=== PATIENT | female | born 2000 | race Caucasian/White ===

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

== ENCOUNTER 2019-11-30 10:07 | Emergency (ER) | payer MEDICAID, OTHER ==
[~2019-11-30] VITALS: Ht 172.7 cm; Wt 89.1 kg
[2019-11-30 10:33] VITALS: BP 123/97
== END 2019-11-30 10:50 | disposition left against medical advice (07) ==
LOC: ER 10:07
DX: J06.9 Acute upper respiratory infection, unspecified (principal)
CPT/HCPCS: 99281

== ENCOUNTER 2019-11-30 11:54 | Emergency (ER) | payer MEDICAID, OTHER ==
[~2019-11-30] VITALS: Ht 170.2 cm; Wt 89.1 kg
[2019-11-30 12:05] VITALS: BP 123/92
== END 2019-11-30 12:17 | disposition home or self-care (01) ==
LOC: ER 11:54
DX: J06.9 Acute upper respiratory infection, unspecified (principal); Z20.828 Contact with and (suspected) exposure to other viral communicable diseases
CPT/HCPCS: 36415; 87635; 99281; 99283

== ENCOUNTER 2021-04-26 12:34 | Emergency (ER) | payer MEDICAID | END 2021-04-26 13:44 | disposition left against medical advice (07) | LOC: ER 12:35 | DX: M54.59 Other low back pain (principal); Z53.21 Procedure and treatment not carried out due to patient leaving prior to being seen by health care provider ==

== ENCOUNTER 2021-05-19 07:57 | Emergency (ER) | payer MEDICAID ==
[~2021-05-19] VITALS: Ht 172.7 cm; Wt 79.4 kg
[2021-05-19 08:12] VITALS: BP 123/84
[2021-05-19] MEDS ORDERED: PRED10TA23 PO (08:46)
[2021-05-19] MEDS ORDERED: HYDR28CR29 TOP (08:49)
== END 2021-05-19 09:03 | disposition home or self-care (01) ==
LOC: ER 07:58
DX: L23.7 Allergic contact dermatitis due to plants, except food (principal); Z79.899 Other long term (current) drug therapy
CPT/HCPCS: 99283

== ENCOUNTER 2021-11-02 10:18 | Emergency (ER) | payer MEDICAID ==
[~2021-11-02] VITALS: Ht 170.2 cm; Wt 73.6 kg
[~2021-11-02 10:18] MED LIST changes: +HYDR28CR29 TOP
[2021-11-02 10:20] VITALS: BP 138/90
[2021-11-02] MEDS ORDERED: iohexol 350MG/ML 100ml bottle IV ONE (11:04)
[2021-11-02 12:03] LABS: URINE HCG NEGATIVE (NEG)
[2021-11-02 12:11] LABS: CLARITY,URINE CLEAR (Clear); GLUCOSE, URINE NEGATIVE (Neg); KETONES,URINE NEGATIVE (Neg); LEUKOCYTE ESTERASE ,URINE NEGATIVE (Neg); NITRITES, URINE NEGATIVE (Neg); OCCULT BLOOD,URINE NEGATIVE (Neg); PROTEIN,URINE NEGATIVE (Neg); UROBILINOGEN,URINE 0.2 E.U/dL (0.2-1.0)
[2021-11-02 12:16] LABS: COLOR,URINE STRAW (Yellow); UA COLLECTION TYPE CLN CATCH MIDSTREAM
== END 2021-11-02 13:19 | disposition home or self-care (01) ==
LOC: ER 10:19 → EEVIPCON 10:19 → ER 13:19
DX: S00.33XA Contusion of nose, initial encounter (principal); S40.012A Contusion of left shoulder, initial encounter; T71.9XXA Asphyxiation due to unspecified cause, initial encounter; Y08.89XA Assault by other specified means, initial encounter; Y92.89 Other specified places as the place of occurrence of the external cause; Y93.89 Activity, other specified; Y99.8 Other external cause status; Z79.899 Other long term (current) drug therapy
CPT/HCPCS: 70486; 70496; 70498; 81003; 81025; 99285; J3490; Q9967

== ENCOUNTER 2023-08-14 14:00 | Emergency (ER) | payer MEDICAID ==
[~2023-08-14] VITALS: Ht 170.2 cm; Wt 54.5 kg
[~2023-08-14 14:00] MED LIST changes: -HYDR28CR29 TOP; +HYDR28CR96 TOP
[2023-08-14] MEDS: ziprasidone IM 20mg inj **IM only IM ONE (14:32)
[2023-08-14 14:56] LABS: BASOPHILS % (AUTO) 0.7 % (0-1); EOSINOPHILS # (AUTO) 0.1 X10'3 (0-0.9); EOSINOPHILS % (AUTO) 1.8 % (0-6); HEMATOCRIT 42.4 % (35.0-45.0); HEMOGLOBIN 14.1 g/dl (12.0-16.0); LYMPHOCYTES # (AUTO) 2.6 X10'3 (1.1-4.8); MEAN CORPUSCULAR HEMOGLOBIN 30.2 PG (27.0-31.0); MEAN CORPUSCULAR HGB CONC 33.2 g/dL (33.0-36.5); MEAN CORPUSCULAR VOLUME 90.7 FL (78-98); MEAN PLATELET VOLUME 8.6 FL (7.4-10.4); MONOCYTES # (AUTO) 0.6 X10'3 (0-0.9); MONOCYTES % (AUTO) 8.4 % (2-12); NEUTROPHILS # (AUTO) 3.4 X10'3 (1.8-7.7); NEUTROPHILS % (AUTO) 50.1 % (42-75); PLATELET COUNT 367 X10'3 (140-440); RED BLOOD COUNT 4.67 X10'6 (4.20-5.60); RED CELL DISTRIBUTION WIDTH 18.7 % (11.5-14.5); WHITE BLOOD COUNT 6.7 X10'3 (4.5-11.0)
[2023-08-14 15:02] LABS: BILIRUBIN,URINE SMALL (Neg); CLARITY,URINE CLOUDY (Clear); COLOR,URINE YELLOW (Yellow); GLUCOSE, URINE NEGATIVE (Neg); KETONES,URINE NEGATIVE (Neg); LEUKOCYTE ESTERASE ,URINE TRACE (Neg); NITRITES, URINE NEGATIVE (Neg); OCCULT BLOOD,URINE NEGATIVE (Neg); PROTEIN,URINE TRACE mg/dl (Neg); UROBILINOGEN,URINE 0.2 E.U/dL (0.2-1.0)
[2023-08-14 15:02] LABS: ALANINE AMINOTRANSFERASE 30 U/L (12-78); ALKALINE PHOSPHATASE 69 IU/L (46-116); ANION GAP 11 (8-16); ASPARTATE AMINO TRANSFERASE 23 U/L (10-37); BILIRUBIN,TOTAL 0.4 MG/DL (0.1-1.0); BLOOD UREA NITROGEN 14 MG/DL (7-18); BUN/CREATININE RATIO 15.4 (10.0-20.0); CALCIUM 9.2 MG/DL (8.5-10.1); CHLORIDE 108 MMOL/L (99-107); CREATININE 0.91 MG/DL (0.40-0.90); GLUCOSE 117 MG/DL (70-104); POTASSIUM 4.1 MMOL/L (3.5-5.1); SODIUM 144 MMOL/L (135-145); TOTAL CARBON DIOXIDE 25.4 MMOL/L (24-32); TOTAL PROTEIN 8.1 G/DL (6.4-8.2); eCRCL 82 ML/MIN; eGFR 76 ML/MIN
[2023-08-14 15:07] LABS: SQUAMOUS EPITHELIAL CELL,UR MANY /LPF (FEW); UA COLLECTION TYPE CLN CATCH MIDSTREAM
[2023-08-14 15:08] LABS: MUCUS STRANDS MODERATE /LPF (Neg)
[2023-08-14 15:09] LABS: BACTERIA,URINE 2+ /HPF (Neg); CAL OXALATE CRYSTALS 4+ /HPF (NEGATIVE); TRANSITIONAL EPI CELLS,URINE FEW /HPF; URINE AMPHETAMINE SCREEN NEGATIVE (Neg); URINE BARBITUATE SCREEN NEGATIVE (Neg); URINE BENZODIAZEPINES SCREEN NEGATIVE (Neg); URINE CANNABINOID SCREEN NEGATIVE (Neg); URINE COCAINE SCREEN POSITIVE (Neg); URINE METHADONE SCREEN NEGATIVE (Neg); URINE OPIATE SCREEN NEGATIVE (Neg); URINE PHENCYCLIDINE SCREEN NEGATIVE (Neg)
[2023-08-14 15:10] LABS: AMORPHOUS URATES 1+; RBC,URINE 0-2 /HPF (0-2)
[2023-08-14] MEDS ORDERED: NO HOME MEDS (17:33)
[2023-08-15 05:41] VITALS: BP 107/71; PULSE 66; RESP 14; TEMP 98.1; O2SAT 96
[2023-08-15 15:03] LABS: ETHANOL < 10 MG/DL (<10); THYROID STIMULATING HORMONE 0.91 ulU/ml (0.34-4.50)
[2023-08-15 15:27] LABS: ETHANOL < 10 MG/DL (<10); THYROID STIMULATING HORMONE 0.27 ulU/ml (0.34-4.50)
[2023-08-15 16:32] LABS: URINE HCG NEGATIVE (NEG)
== END 2023-08-15 17:14 ==
LOC: ER 14:01
DX: F29 Unspecified psychosis not due to a substance or known physiological condition (principal); Z20.822 Contact with and (suspected) exposure to COVID-19; R45.1 Restlessness and agitation; Z79.899 Other long term (current) drug therapy
CPT/HCPCS: 36415; 80053; 80305; 80320; 81001; 81025; 84443; 85025; 87811; 96372; 99285; J3486

== ENCOUNTER 2023-09-04 16:40 | Emergency (ER) | payer MEDICAID ==
[~2023-09-04] VITALS: Ht 175.3 cm; Wt 63.5 kg
[~2023-09-04 16:40] MED LIST changes: +NO HOME MEDS
[2023-09-04 17:15] LABS: URINE HCG NEGATIVE (NEG)
[2023-09-04] MEDS: diphenhydrAMINE 50 mg/ml inj IM ONE (17:15)
[2023-09-04] MEDS: LORazepam 1 MG tablet PO ONE (17:15)
[2023-09-04 17:25] LABS: URINE AMPHETAMINE SCREEN NEGATIVE (Neg); URINE BARBITUATE SCREEN NEGATIVE (Neg); URINE BENZODIAZEPINES SCREEN NEGATIVE (Neg); URINE CANNABINOID SCREEN NEGATIVE (Neg); URINE COCAINE SCREEN NEGATIVE (Neg); URINE METHADONE SCREEN NEGATIVE (Neg); URINE OPIATE SCREEN NEGATIVE (Neg); URINE PHENCYCLIDINE SCREEN NEGATIVE (Neg)
[2023-09-04 18:15] LABS: BASOPHILS % (AUTO) 0.3 % (0-1); EOSINOPHILS % (AUTO) 0.6 % (0-6); HEMATOCRIT 38.9 % (35.0-45.0); HEMOGLOBIN 12.8 g/dl (12.0-16.0); LYMPHOCYTES # (AUTO) 2.3 X10'3 (1.1-4.8); LYMPHOCYTES % (AUTO) 31.5 % (21-51); MEAN CORPUSCULAR HEMOGLOBIN 30.4 PG (27.0-31.0); MEAN CORPUSCULAR VOLUME 92.1 FL (78-98); MEAN PLATELET VOLUME 8.4 FL (7.4-10.4); MONOCYTES # (AUTO) 0.4 X10'3 (0-0.9); MONOCYTES % (AUTO) 5.3 % (2-12); NEUTROPHILS # (AUTO) 4.6 X10'3 (1.8-7.7); NEUTROPHILS % (AUTO) 62.3 % (42-75); PLATELET COUNT 334 X10'3 (140-440); RED BLOOD COUNT 4.22 X10'6 (4.20-5.60); RED CELL DISTRIBUTION WIDTH 15.9 % (11.5-14.5); WHITE BLOOD COUNT 7.5 X10'3 (4.5-11.0)
[2023-09-04 18:21] LABS: ALBUMIN 3.6 G/DL (3.4-5.0); ANION GAP 7 (8-16); BLOOD UREA NITROGEN 12 MG/DL (7-18); CALCIUM 9.2 MG/DL (8.5-10.1); CHLORIDE 105 MMOL/L (99-107); ETHANOL < 10 MG/DL (<10); GLUCOSE 83 MG/DL (70-104); POTASSIUM 3.9 MMOL/L (3.5-5.1); SODIUM 140 MMOL/L (135-145); TOTAL CARBON DIOXIDE 27.7 MMOL/L (24-32); eCRCL 109 ML/MIN; eGFR 88 ML/MIN
[2023-09-05] MEDS: risperiDONE 0.5mg tablet PO STA (00:46)
[2023-09-05] MEDS: LORazepam 1 MG tablet PO ONE (08:11)
[2023-09-05] MEDS ORDERED: ARIP15TA68 PO (08:53)
[2023-09-05] MEDS ORDERED: HYDR50TA65 PO (08:53)
[2023-09-05] MEDS ORDERED: METH-797 PO (08:53)
[2023-09-05] MEDS ORDERED: QUET50TA24 PO (08:53)
[2023-09-05] MEDS: hydrOXYzine 25 MG tablet PO ONE (09:32)
[2023-09-05] MEDS: aripiprazole 5mg tablet PO SCH (10:18)
[2023-09-05] MEDS: buprenorphine/naloxone 8MG-2MG SUBlingual film SL SCH (13:15)
[2023-09-05 16:17] VITALS: TEMP 98.5
[2023-09-05] MEDS: ondansetron 4mg rapidly disintigrating tab PO ONE ×2 (16:19→17:16)
[2023-09-05 17:13] VITALS: BP 105/71; PULSE 73; O2SAT 93
[2023-09-05] MEDS: haloperidol lactate 5mg/ml inj IM ONE (17:48)
[2023-09-05 19:15] LABS: ALANINE AMINOTRANSFERASE 29 U/L (12-78); ALBUMIN 3.8 G/DL (3.4-5.0); ALKALINE PHOSPHATASE 59 IU/L (46-116); ANION GAP 4 (8-16); ASPARTATE AMINO TRANSFERASE 15 U/L (10-37); BILIRUBIN,TOTAL 0.2 MG/DL (0.1-1.0); BLOOD UREA NITROGEN 13 MG/DL (7-18); CALCIUM 9.3 MG/DL (8.5-10.1); CHLORIDE 103 MMOL/L (99-107); CREATININE 0.65 MG/DL (0.40-0.90); GLUCOSE 103 MG/DL (70-104); POTASSIUM 4.6 MMOL/L (3.5-5.1); SODIUM 139 MMOL/L (135-145); TOTAL CARBON DIOXIDE 31.9 MMOL/L (24-32); TOTAL PROTEIN 7.7 G/DL (6.4-8.2); eCRCL 134 ML/MIN; eGFR > 90 ML/MIN
[2023-09-05] MEDS: diphenhydrAMINE 50 mg/ml inj IM ONE (19:15)
[2023-09-05 19:24] LABS: THYROID STIMULATING HORMONE 0.69 ulU/ml (0.34-4.50)
[2023-09-05] MEDS: QUEtiapine 25mg tablet PO SCH (20:10)
[2023-09-06 00:03] LABS: BILIRUBIN,URINE NEGATIVE (Neg); CLARITY,URINE SLIGHTLY CLOUDY (Clear); COLOR,URINE YELLOW (Yellow); GLUCOSE, URINE NEGATIVE (Neg); KETONES,URINE NEGATIVE (Neg); LEUKOCYTE ESTERASE ,URINE SMALL (Neg); NITRITES, URINE NEGATIVE (Neg); OCCULT BLOOD,URINE NEGATIVE (Neg); PH,URINE 7.5 (4.8-8.0); PROTEIN,URINE NEGATIVE (Neg); UROBILINOGEN,URINE 0.2 E.U/dL (0.2-1.0)
[2023-09-06 00:04] LABS: UA COLLECTION TYPE CLN CATCH MIDSTREAM
[2023-09-06 00:08] LABS: MUCUS STRANDS MANY /LPF (Neg); RBC,URINE 0-2 /HPF (0-2); SQUAMOUS EPITHELIAL CELL,UR MANY /LPF (FEW); TRANSITIONAL EPI CELLS,URINE FEW /HPF; WBC,URINE 0-4 /HPF (0-4)
[2023-09-06 00:14] LABS: AMORPHOUS PHOSPHATES 2+; BACTERIA,URINE 1+ /HPF (Neg)
[2023-09-06] MEDS: LORazepam 1 MG tablet PO ONE ×2 (02:58→11:11)
[2023-09-06 07:50] VITALS: RESP 16
[2023-09-06] MEDS: hydrOXYzine 25 MG tablet PO ONE (10:28)
[2023-09-06] MEDS ORDERED: hydrOXYzine 25 MG tablet PO ONE (21:00)
== END 2023-09-06 12:15 ==
LOC: EEVIPCON 16:40 → ER 16:40
DX: R45.851 Suicidal ideations (principal); F99 Mental disorder, not otherwise specified; Z20.822 Contact with and (suspected) exposure to COVID-19; Z79.899 Other long term (current) drug therapy
CPT/HCPCS: 36415; 80048; 80053; 80305; 80320; 81001; 81025; 84443; 85025; 87811; 96372; 99285; J1200; J1630; Q0177; 81003

== ENCOUNTER 2024-03-10 20:41 | Emergency (ER) | payer MEDICAID ==
[~2024-03-10] VITALS: Ht 172.7 cm; Wt 66.1 kg
[~2024-03-10 20:41] MED LIST changes: +ARIP15TA68 PO; -HYDR28CR96 TOP; +HYDR50TA65 PO; +METH-797 PO; -NO HOME MEDS; -PNV1CAPS50 PO; +QUET50TA24 PO
[2024-03-10 20:43] VITALS: PULSE 119; RESP 15; O2SAT 98
== END 2024-03-10 23:42 | disposition home or self-care (01) ==
LOC: ER 20:42
DX: Z00.00 Encounter for general adult medical examination without abnormal findings (principal); F14.90 Cocaine use, unspecified, uncomplicated
CPT/HCPCS: 99281